=== PATIENT | male | born 1970 | race Caucasian/White ===

== ENCOUNTER 2021-03-22 12:55 | Observation (INO) | payer OTHER ==
[2021-03-22] MEDS ORDERED: SODIUM CHLORIDE 0.9% 1,000 ML IV ONE (13:15)
--- NOTE | 2021-03-22 13:17 | ED ---
General Adult HPI - General Chief complaint: Psychiatric Symptoms Stated complaint: EPS eval Time Seen by Provider: 03/22/21 13:00 Source: patient, RN notes reviewed, old records reviewed Mode of arrival: ambulatory Limitations: no limitations - History of Present Illness Initial comments: This is a 51-year-old male who presents emergency department stating that he was brought in by police because he told his therapist that he wants to jump off the bridge. Patient states he does not feel suicidal and in fact he was planning on going swimming in the [place] today. Patient denies suicidal ideations. Patient states he said that because his therapist is upsetting him and his been drinking so he says stupid things when he is drinking. Patient is not petition. Patient states he has no one to come pick him up. Patient denies any physical complaint s today. Patient denies headache patient denies chest pain patient's difficulty breathing or shortness of breath. Patient denies any recent cough or fever or chills per patient denies abdominal pain patient denies nausea vomiting diarrhea. - Related Data Allergies Allergy/AdvReac Type Severity Reaction Status Date / Time No Known Allergies Allergy Verified 03/22/21 13:03 Review of Systems ROS Statement: Those systems with pertinent positive or pertinent negative responses have been documented in the HPI. ROS Other: All systems not noted in ROS Statement are negative. Past Medical History Past Medical History: No Reported History History of Any Multi-Drug Resistant Organisms: None Reported Past Surgical History: No Surgical Hx Reported Past Psychological History: Bipolar, Depression Smoking Status: Current every day smoker Past Alcohol Use History: Abuse, Daily, Heavy Past Drug Use History: None Reported General Exam - General Exam Comments Initial Comments: GENERAL: Patient is well-developed and well-nourished. Patient is nontoxic and well- hydrated and is in no acute distress. Patient does appear intoxicated ENT: Neck is soft and supple. No significant lymphadenopathy is noted. Oropharynx is clear. Moist mucous membranes. Neck has full range of motion without eliciting any pain. EYES: The sclera were anicteric and conjunctiva were pink and moist. Extraocular movements were intact and pupils were equal round and reactive to light. Eyelids were unremarkable. PULMONARY: Unlabored respirations. Good breath sounds bilaterally. No audible rales rhonchi or wheezing was noted. CARDIOVASCULAR: There is a regular rate and rhythm without any murmurs gallops or rubs. ABDOMEN: Soft and nontender with normal bowel sounds. SKIN: Skin is clear with no lesions or rashes and otherwise unremarkable. NEUROLOGIC: Patient is alert and oriented x3. Cranial nerves II through XII are grossly in tact. Motor and sensory are also intact. Normal speech, volume and content. Symmetrical smile. MUSCULOSKELETAL: Normal extremities with adequate strength and full range of motion. LYMPHATICS: No significant lymphadenopathy is noted PSYCHIATRIC: Patient denies any suicidal homicidal ideations. Patient is to vomit and does not appear to be depressed just intoxicated Limitations: no limitations Course Vital Signs 03/22/21 13:00 Temperature 98.5 F Pulse Rate 124 H Respiratory 18 Rate Blood Pressure 128/87 O2 Sat by Pulse 95 Oximetry Medical Decision Making - Medical Decision Making I spoke with Dr. tristan he agreed to admit the patient admitted the patient wrote admitting orders. Dr. chavez wanted a psychiatric consultation. - Lab Data Result diagrams: 03/22/21 13:37 03/22/21 13:37 Lab Results 03/22/21 03/22/21 Range/Units 13:37 13:37 WBC 14.4 H (3.8-10.6) k/uL RBC 5.25 (4.30-5.90) m/uL Hgb 15.8 (13.0-17.5) gm/dL Hct 46.3 (39.0-53.0) % MCV 88.1 (80.0-100.0) fL MCH 30.1 (25.0-35.0) pg MCHC 34.1 (31.0-37.0) g/dL RDW 13.8 (11.5-15.5) % Plt Count 296 (150-450) k/uL MPV 7.5 Neutrophils % 87 % Lymphocytes % 8 % Monocytes % 3 % Eosinophils % 0 % Basophils % 0 % Neutrophils # 12.6 H (1.3-7.7) k/uL Lymphocytes # 1.2 (1.0-4.8) k/uL Monocytes # 0.5 (0-1.0) k/uL Eosinophils # 0.1 (0-0.7) k/uL Basophils # 0.1 (0-0.2) k/uL Sodium 139 (137-145) mmol/L Potassium 3.8 (3.5-5.1) mmol/L Chloride 104 (98-107) mmol/L Carbon Dioxide 18 L (22-30) mmol/L Anion Gap 17 mmol/L BUN 14 (9-20) mg/dL Creatinine 0.79 (0.66-1.25) mg/dL Est GFR (CKD-EPI)AfAm >90 (>60 ml/min/1.73 sqM) Est GFR (CKD-EPI)NonAf >90 (>60 ml/min/1.73 sqM) Glucose 278 H (74-99) mg/dL Calcium 8.7 (8.4-10.2) mg/dL Magnesium 1.9 (1.6-2.3) mg/dL Total Bilirubin 0.7 (0.2-1.3) mg/dL AST 61 H (17-59) U/L ALT 35 (4-49) U/L Alkaline Phosphatase 122 (38-126) U/L Total Protein 7.0 (6.3-8.2) g/dL Albumin 4.3 (3.5-5.0) g/dL Serum Alcohol 229 H* mg/dL Disposition Clinical Impression: Alcohol intoxication Disposition: ADMITTED IP TO THIS HOSP Referrals: None,Stated [Primary Care Provider] - 1-2 days Time of Disposition: 14:29
[2021-03-22 13:56] LABS: ALT 35 U/L (4-49); AST 61 U/L (17-59); African American GFR (CKD) >90 (>60 ml/min/1.73 sqM); Albumin 4.3 g/dL (3.5-5.0); Alkaline Phosphatase 122 U/L (38-126); Anion Gap 17 mmol/L; Blood Urea Nitrogen 14 mg/dL (9-20); Calcium 8.7 mg/dL (8.4-10.2); Carbon Dioxide 18 mmol/L (22-30); Chloride 104 mmol/L (98-107); Glucose 278 mg/dL (74-99); Magnesium 1.9 mg/dL (1.6-2.3); Non-African American GFR(CKD) >90 (>60 ml/min/1.73 sqM); Potassium 3.8 mmol/L (3.5-5.1); Sodium 139 mmol/L (137-145); Total Bilirubin 0.7 mg/dL (0.2-1.3)
[2021-03-22 14:02] LABS: Basophils # (A) 0.1 k/uL (0-0.2); Basophils % (A) 0 %; Eosinophils # (A) 0.1 k/uL (0-0.7); Eosinophils % (A) 0 %; HCT 46.3 % (39.0-53.0); HGB 15.8 gm/dL (13.0-17.5); Lymphocytes # (A) 1.2 k/uL (1.0-4.8); Lymphocytes % (A) 8 %; MCH 30.1 pg (25.0-35.0); MCHC 34.1 g/dL (31.0-37.0); MCV 88.1 fL (80.0-100.0); Mean Platelet Volume 7.5; Monocytes # (A) 0.5 k/uL (0-1.0); Monocytes % (A) 3 %; Neutrophils # (A) 12.6 k/uL (1.3-7.7); Neutrophils % (A) 87 %; Platelet Count 296 k/uL (150-450); RBC 5.25 m/uL (4.30-5.90); RDW 13.8 % (11.5-15.5); WBC 14.4 k/uL (3.8-10.6)
[2021-03-22 14:07] LABS: Alcohol 229 mg/dL
[2021-03-22] MEDS ORDERED: LORazepam 2 MG/ML INJ IV PRN ×2 (14:31)
[2021-03-22] MEDS ORDERED: THIAMINE 100 MG/ML 2 ML VIAL IM STA (14:31)
[2021-03-22] MEDS: SODIUM CHLORIDE 0.9% 1,000 ML IV ONE ×2 (15:00→23:54)
[2021-03-22] MEDS ORDERED: MORPHINE SULFATE 4 MG/ML SYRINGE IVP PRN (17:14)
[2021-03-22] MEDS ORDERED: MORPHINE SULFATE 4 MG/ML SYRINGE IVP STA (17:14)
--- NOTE | 2021-03-22 18:28 | XR ---
EXAMINATION TYPE: XR chest 1V DATE OF EXAM: 03/22/2021 COMPARISON: NONE HISTORY: Short of breath TECHNIQUE: Single view FINDINGS: Heart and mediastinum are normal. Lungs are clear of infiltrate. There is old left clavicle fracture with deformity. There is no pleural effusion. IMPRESSION: No active cardiopulmonary disease. Normal heart.
[2021-03-22] MEDS: THIAMINE 100 MG TAB PO SCH (18:39)
[2021-03-22] MEDS: SODIUM CHLORIDE 0.9% 1,000 ML IV SCH (18:41)
--- NOTE | 2021-03-22 21:39 | P.HPIM ---
History of Present Illness This is a pleasant 51 years old male with past medical history of bipolar and depression, cigarette smoker and alcohol abuse. Patient presents because he was feeling depressed. He has been fighting with his the last 3-4 days because of his drinking habit. Patient has been drinking before but he is also been sober for a while now however. Last few days ago when he was drinking a lot. Because of this he got a qurrel with his as a result of that his to come off of their house, they live together in [place] but he drove him to the train station [place] from there he took the train to [place] his home town where he was raised and admitted him to the emergency room Patient was talking to his psychologist where he got upset and made a suicidal comment stating that he will throw themselves of the bridge, currently patient says that he does not want to kill himself but also he does not want to live. He is short of breath, probably from his smoking habits, he says that he has a smoking cuff. No chest pain. Pain or nausea vomiting. Urinary complaints. Today, or weakness or numbness. Fever however he complains from pain at the left clavicle area from old fracture with some deformity in the area. No recent trauma or fall Vital showing he is hemodynamically stable. Labs reviewed showing mild leuko cytosis at 14 K. In the emergency room he was started on CIWA protocol, thiamine normal saline at 50 mL/h Past Medical History Past Medical History: No Reported History History of Any Multi-Drug Resistant Organisms: None Reported Past Surgical History: No Surgical Hx Reported Past Psychological History: Bipolar, Depression Smoking Status: Current every day smoker Past Alcohol Use History: Abuse, Daily, Heavy Past Drug Use History: None Reported Medications and Allergies Home Medications Medication Instructions Recorded Confirmed Type OLANZapine 15 mg PO HS 03/22/21 03/22/21 History hydrOXYzine pamoate [Vistaril] 50 mg PO BID 03/22/21 03/22/21 History traZODone HCL [Desyrel] 100 mg PO HS 03/22/21 03/22/21 History Allergies Allergy/AdvReac Type Severity Reaction Status Date / Time No Known Allergies Allergy Verified 03/22/21 15:31 Physical Exam Vitals: Vital Signs Temp Pulse Resp BP Pulse Ox 03/22/21 15:00 97.9 F 118 H 18 138/69 95 03/22/21 13:00 98.5 F 124 H 18 128/87 95 Intake and Output 03/22/21 03/22/21 03/22/21 06:59 14:59 22:59 Other: Weight 83.915 kg Results CBC & Chem 7: 03/22/21 13:37 03/22/21 13:37 Labs: Abnormal Lab Results - Last 24 Hours (Table) 03/22/21 03/22/21 Range/Units 13:37 13:37 WBC 14.4 H (3.8-10.6) k/uL Neutrophils # 12.6 H (1.3-7.7) k/uL Carbon Dioxide 18 L (22-30) mmol/L Glucose 278 H (74-99) mg/dL AST 61 H (17-59) U/L Serum Alcohol 229 H* mg/dL Assessment and Plan Assessment: Bipolar, depression, rule out suicidal ideation alcohol intoxication at-risk of alcohol withdrawal Alcohol abuse Nicotine dependence Left clavicular area pain from old trauma Plan: This is a pleasant 51 years old male who presents with depression, I'll call abuse and suicidal commands. With the patient on CIWA protocol. And thiamine. Continue gentle hydration Suicidal precautions, keep sitter at bedside Patient currently agrees to stay in the hospital. However he cannot leave AMA told he got cleared by psychiatrist and to the patient's was to leave AMA he needs to be petitioned, discussed with the bedside nurse Labs and medication were reviewed.. Continue same treatment. Continue with symptomatic treatment. Resume home medication. Monitor lytes and vitals. DVT and GI prophylaxis. Further recommendationsas per clinical course of the patient DVT prophylaxis: Subcutaneous heparin Lovenox GI Prophylaxis: Pepcid Prognosis is guarded
[2021-03-22] MEDS: FAMOTIDINE 20 MG/2 ML VIAL IV SCH (23:53)
[2021-03-23] MEDS: LORazepam 2 MG/ML INJ IV PRN ×3 (02:15→17:59)
[2021-03-23] MEDS: THIAMINE 100 MG TAB PO SCH ×2 (07:26→16:52)
[2021-03-23] MEDS: NICOTINE 21MG/24HR PATCH TRANSDERM SCH (08:42)
[2021-03-23] MEDS: ENOXAPARIN 40 MG/0.4 ML SYRINGE SQ SCH (08:42)
[2021-03-23] MEDS: FAMOTIDINE 20 MG/2 ML VIAL IV SCH ×2 (08:42→20:40)
[2021-03-23] MEDS: SODIUM CHLORIDE 0.9% 1,000 ML IV SCH (08:42)
[2021-03-23 10:15] LABS: Basophils # (A) 0.07 X 10*3/uL (0.00-0.10); Basophils % (A) 0.6 %; Eosinophils # (A) 0.14 X 10*3/uL (0.04-0.35); Eosinophils % (A) 1.1 %; HCT 42.6 % (39.6-50.0); HGB 14.1 g/dL (13.0-17.0); Lymphocytes % (A) 21.4 %; MCHC 33.1 g/dL (32.0-37.0); MCV 87.7 fL (80.0-97.0); Mean Platelet Volume 10.6 fL (9.5-12.2); Monocytes # (A) 1.04 X 10*3/uL (0.20-1.00); Monocytes % (A) 8.3 %; Neutrophils # (A) 8.59 X 10*3/uL (1.80-7.70); Neutrophils % (A) 68.1 %; Platelet Count 256 X 10*3/uL (140-440); RBC 4.86 X 10*6/uL (4.40-5.60); RDW 14.1 % (11.5-14.5)
--- NOTE | 2021-03-23 13:22 | P.CN ---
Psychiatric Consult - . Consult date: 03/23/21 Consult:: 03/23/21 13:15 IDENTIFYING DATA: This patient is a 51-year-old male with a history of chronic alcohol abuse who is homeless and is currently with his . He has 2 daughters and is unemployed. REASON FOR REFERRAL: Psychiatry was consulted for depression and making suicidal comments HISTORY OF PRESENT ILLNESS: The patient presented to the hospital yesterday by police and was brought in after therapist he told called them because patient stated that he wanted to jump off a bridge. Patient claimed after that he was not suicidal and wanted to go swimming. Patient did endorse severe alcohol drinking and "saying stupid things" when he drinks. Patient's blood alcohol level was 229 on admission. Patient was seen at the bedside today and agreeable to speak to business writer. He had a constricted affect and appeared to be depressed. He also claimed that he is feeling anxious from the withdrawal symptoms and appeared to be sweating. He claims that he also gets tremors when he withdraws from alcohol however denied any history of withdrawal seizures or DTs. He claims that he made the comment about suicide and claims that "I wasn't thinking" however did claim that he is struggling with drinking and his depre ssion. He claims that his depression is about a 1 or 2 out of 10. He claims that his and him a few days ago. He claims that he is drinking approximately a fifth and a half of vodka daily. He claims that he has been noncompliant with his psychiatric medications. At this time patient denies any current suicidal or homical ideations, intent or plan. Patient denies any auditory, visual hallucinations and denies any paranoia or delusions. Patients admits to using alcohol as described above and cigarettes. PAST PSYCHIATRIC HISTORY: Patient has a a history of bipolar depression and anxiety and alcohol abuse. He claims that he was previously on Vistaril, Zyprexa and trazodone. Patient denies any previous psychiatric hospitalizations. He states that he currently follows up and [place] at a psychiatric clinic called [facility]. Patient denies any history of suicide attempts in the past. PAST MEDICAL HISTORY: denies. ALLERGIES: as per EMR. CHEMICAL DEPENDENCY HISTORY: as per HPI. FAMILY PSYCHIATRIC/SUBSTANCE USE HISTORY: He states that his mother had some form of mental illness. Claims that his father was an alcoholic SOCIAL HISTORY: Patient was born and raised in [facility]. He claims that he is currently homeless and is going through a separation. He states he has 2 daughters. He claims that he is unemployed. He states that he has been to [facility] in the past however was vague about why.. MENTAL STATUS EXAM: General Appearance: Patient appears to be sweating, stated age is alert, attempts to be cooperative. Patient appears to have poor hygiene and grooming wearing hospital gown with fair eye contact. Behavior: Patient is calmly lying in bed without any agitated behavior. Tremors and is sweating. Speech: Patient's speech is fluent and nonpressured. Mood/Affect: Patient reports their mood is "depressed and anxious", affect is congruent Suicidality/Homicidality: Patient denies having any suicidal or homicidal ideation intent or plan. Perceptions: Patient denies any visual hallucinations and denies any auditory hallucinations Though content/process: There is no evidence of any delusional thought content and thought process is linear and goal-directed. [place] Memory and concentration: AOX3, grossly intact for the purposes of this session. Can spell "WORLD" backwards Judgment and insight: poor IMPRESSIONS: Depressive disorder unspecified, rule out bipolar disorder with depressed mood versus major depressive disorder versus substance-induced mood disorder PLAN: -This time will continue to follow-up/follow along with patient's case as he goes through withdrawals to see if patient will meet criteria for inpatient psychiatric care. -Would recommend the following medication changes/additions: Zyprexa 5 mg daily at bedtime for mood stabilization/depression/insomnia. Started Valium 5 mg twice a day for alcohol withdrawal. WA protocol with PRN Ativan for alcohol withdrawal. Continue to monitor vital signs.] -Continue 1:1 sitter for safety -Cannot leave AMA at this time. Patient will need a petition and certification if attempting to leave AMA. -Police Manager spoke with patient about substance abuse and the harmful effects on medical and mental health, patient verbally understood and agreed. -Communicated plan to patient's nurse -Will continue to follow along -Please contact with any questions.
[2021-03-23] MEDS: diazePAM 5 MG TAB PO SCH ×2 (13:28→20:40)
[2021-03-23] MEDS ORDERED: MORPHINE SULFATE 4 MG/ML SYRINGE IVP PRN (20:15)
--- NOTE | 2021-03-23 20:18 | P.PN ---
Subjective This is a pleasant 51 years old male with past medical history of bipolar and depression, cigarette smoker and alcohol abuse. Patient presents because he was feeling depressed. He has been fighting with his the last 3-4 days because of his drinking habit. Patient has been drinking before but he is also been sober for a while now however. Last few days ago when he was drinking a lot. Because of this he got a qurrel with his as a result of that his to come off of their house, they live together in [place] but he drove him to the train station [place] from there he took the train to [place] his home town where he was raised and admitted him to the emergency room Patient was talking to his psychologist where he got upset and made a suicidal comment stating that he will throw themselves of the bridge, currently patient s ays that he does not want to kill himself but also he does not want to live. He is short of breath, probably from his smoking habits, he says that he has a smoking cuff. No chest pain. Pain or nausea vomiting. Urinary complaints. Today, or weakness or numbness. Fever however he complains from pain at the left clavicle area from old fracture with some deformity in the area. No recent trauma or fall Vital showing he is hemodynamically stable. Labs reviewed showing mild leukocytosis at 14 K. In the emergency room he was started on CIWA protocol, thiamine normal saline at 50 mL/h 03/23/2021 Patient is on CIWA protocol as his CIWA score is 11-12 this morning, he got Ativan. More sleepy. He did not take or need any morphine. He is calm. Sitter at bedside Vitals are stable. Oxygen is 91-93%. WBC is trending down to 12 K Continue with Ativan as needed, thiamine, evaluated by psychiatrist. Patient is going to stay in the hospital for now. Discussed with staff patient cannot leave AMA otherwise he needs to be petitioned, for possible risk to herself and suicidal thoughts. Objective - Vital Signs Vital signs: Vital Signs Temp 98.2 F 03/23/21 14:46 Pulse 80 03/23/21 14:46 Resp 16 03/23/21 14:46 BP 122/69 03/23/21 14:46 Pulse Ox 91 L 03/23/21 14:46 Intake & Output 03/22/21 03/23/21 03/23/21 18:59 06:59 18:59 Intake Total 200 Output Total 300 Balance -300 200 Weight 83.915 kg Intake: Oral 200 Output: Emesis 300 Other: # Voids 1 - Labs CBC & Chem 7: 03/23/21 05:32 03/22/21 13:37 Labs: Abnormal Lab Results - Last 24 Hours (Table) 03/23/21 Range/Units 05:32 WBC 12.60 H (4.50-10.00) X 10*3/uL Immature Gran # 0.06 H (0.00-0.04) X 10*3/uL Neutrophils # 8.59 H (1.80-7.70) X 10*3/uL Monocytes # 1.04 H (0.20-1.00) X 10*3/uL Assessment and Plan Assessment: Bipolar, depression, with suicidal ideation alcohol intoxication now going into alcohol withdrawal Alcohol abuse Nicotine dependence Left clavicular area pain from old trauma Plan: This is a pleasant 51 years old male who presents with depression, I'll call abuse and suicidal commands. With the patient on CIWA protocol. And thiamine. Continue gentle hydration Suicidal precautions, keep sitter at bedside Patient currently agrees to stay in the hospital. However he cannot leave AMA told he got cleared by psychiatrist and to the patient's was to leave AMA he needs to be petitioned, discussed with the bedside nurse Labs and medication were reviewed.. Continue same treatment. Continue with s ymptomatic treatment. Resume home medication. Monitor lytes and vitals. DVT and GI prophylaxis. Further recommendations as per clinical course of the patient DVT prophylaxis: Subcutaneous heparin Lovenox GI Prophylaxis: Pepcid Prognosis is guarded
[2021-03-23] MEDS ORDERED: OLANZapine 5 MG TAB PO SCH (21:00)
[2021-03-24 07:39] VITALS: BP 165/78; TEMP 98.4
[2021-03-24 07:41] VITALS: RESP 16
[2021-03-24] MEDS: THIAMINE 100 MG TAB PO SCH (07:59)
[2021-03-24] MEDS: FAMOTIDINE 20 MG/2 ML VIAL IV SCH (08:20)
[2021-03-24 08:52] VITALS: PULSE 94
[2021-03-24] MEDS ORDERED: ALPRAZolam 0.5 MG TAB PO STA (08:59)
[2021-03-24] MEDS ORDERED: GABAPENTIN 300 MG CAP PO SCH (09:00)
[2021-03-24 09:25] LABS: Basophils # (A) 0.07 X 10*3/uL (0.00-0.10); Basophils % (A) 0.6 %; Eosinophils # (A) 0.23 X 10*3/uL (0.04-0.35); HCT 42.5 % (39.6-50.0); Lymphocytes # (A) 2.44 X 10*3/uL (0.90-5.00); Lymphocytes % (A) 21.3 %; MCH 28.9 pg (27.0-32.0); MCHC 32.9 g/dL (32.0-37.0); MCV 87.6 fL (80.0-97.0); Mean Platelet Volume 10.5 fL (9.5-12.2); Monocytes # (A) 0.89 X 10*3/uL (0.20-1.00); Monocytes % (A) 7.8 %; Neutrophils # (A) 7.78 X 10*3/uL (1.80-7.70); Neutrophils % (A) 67.9 %; Platelet Count 245 X 10*3/uL (140-440); RBC 4.85 X 10*6/uL (4.40-5.60); RDW 13.8 % (11.5-14.5); WBC 11.46 X 10*3/uL (4.50-10.00)
[2021-03-24] MEDS: diazePAM 5 MG TAB PO SCH (10:27)
[2021-03-24] MEDS: NICOTINE 21MG/24HR PATCH TRANSDERM SCH (10:29)
[2021-03-24] MEDS: ENOXAPARIN 40 MG/0.4 ML SYRINGE SQ SCH (10:29)
[2021-03-24 11:00] LABS: African American GFR (CKD) 124.9 (60.0-200.0); Anion Gap 11.2 mmol/L (4.00-12.00); BUN/Creat Ratio 11.43 Ratio (12.00-20.00); Calcium 8.4 mg/dL (8.7-10.3); Carbon Dioxide 21.8 mmol/L (21.6-31.8); Magnesium 1.9 mg/dL (1.5-2.4); Non-African American GFR(CKD) 107.7 (60.0-200.0); Potassium 3.8 mmol/L (3.5-5.5)
--- NOTE | 2021-03-24 13:38 | P.PN ---
Progress Note - Text Progress Note Date: 03/24/21 Interval History: Patient was seen today for psychiatric follow-up regarding patient's depression. Patient's nurse claims that patient has been doing well today and his CIWA scores have improved significantly. Nurse also claims the patient is not suicidal any longer and not endorsing any depression today and wants to leave. Patient was seen at the bedside today and appeared to be appropriate and cooperative during the interview and states that he is doing much better today. He claims that he is not feeling depressed. He states that he was able to sleep fairly last night. He claims that he wants to get back with his and stop drinking alcohol. He declines any medications for cravings at this time. He claims that he will want to go do a drug treatment program in the future when the gets back to [place]. At this time patient denies any suicidal or homical ideations, intent or plan. Patient denies any auditory, visual hallucinations and denies any paranoia or delusions. Patient denies any side effects from the medications and has been compliant with meds. Mental Status Exam: General Appearance: Patient appears to be sweating, stated age is alert, attempts to be cooperative. Patient appears to have improving hygiene and grooming wearing hospital gown with fair eye contact. Behavior: Patient is calmly lying in bed without any agitated behavior. Speech: Patient's speech is fluent and nonpressured. Mood/Affect: Patient reports their mood is "good", affect is congruent Suicidality/Homicidality: Patient denies having any suicidal or homicidal ideation intent or plan. Perceptions: Patient denies any visual hallucinations and denies any auditory hallucinations Though content/process: There is no evidence of any delusional thought content and thought process is linear and goal-directed. [place] Memory and concentration: AOX3, grossly intact for the purposes of this session. Judgment and insight: Improving mildly Assessment Depressive disorder unspecified, rule out bipolar disorder with depressed mood versus major depressive disorder versus substance-induced mood disorder alcohol use disorder, currently in withdrawal Plan: -Would recommend the following medication changes/additions: Zyprexa 5 mg daily at bedtime for mood stabilization/depression/insomnia. Valium 5 mg twice a day for alcohol withdrawal however this should not be given to patient when he is discharged. -discontinue 1:1 sitter as patient is no longer suicidal or homicidal -SW to give patient [facility] information, follow up referral and substance abuse resources. -Communicated plan to patient's nurse -At this time psychiatry will sign off. -Please contact with any questions.
== END 2021-03-24 14:12 | disposition home or self-care (01) ==
LOC: EC 12:55 → 6NMEDSUR 14:29 → 4SSUR 16:17
PROVIDERS: ADMIT Internal Medicine; ATTEND Internal Medicine
DX: F10.229 Alcohol dependence with intoxication, unspecified (principal); F10.239 Alcohol dependence with withdrawal, unspecified; Y90.7 Blood alcohol level of 200-239 mg/100 ml; F17.210 Nicotine dependence, cigarettes, uncomplicated; R45.851 Suicidal ideations; F31.9 Bipolar disorder, unspecified; D72.829 Elevated white blood cell count, unspecified; Z79.899 Other long term (current) drug therapy; Z87.81 Personal history of (healed) traumatic fracture
CPT/HCPCS: 96376 ×2; 96372 ×3; 96375 ×2; 82075; 96361; 96374; 99285; 36415; 80053; 80048; 83735 ×2; 85025 ×3; 71045; G0378 ×3; G0480; S4990 ×2; J2060 ×2; J2270; J3411; J1650 ×2; 80320

== ENCOUNTER 2021-03-26 12:53 | Inpatient (IN) | payer OTHER ==
[2021-03-26] MEDS ORDERED: SODIUM CHLORIDE 0.9% 1,000 ML IV STA ×2 (13:02→17:00)
[2021-03-26] MEDS ORDERED: LORazepam 2 MG/ML INJ IV STA (13:15)
[2021-03-26] MEDS ORDERED: cloNIDine HCL 0.1 MG TAB PO STA (13:15)
--- NOTE | 2021-03-26 13:20 | ED ---
Alcohol HPI - General Chief Complaint: Alcohol Stated Complaint: Detox Time Seen by Provider: 03/26/21 12:59 Source: patient, RN notes reviewed, old records reviewed Mode of arrival: ambulatory Limitations: no limitations - History of Present Illness MD Complaint: alcohol intoxication, alcohol withdrawal, alcohol dependence, desires rehab (This is a 51-year-old male with a history about causing who was just discharged 2 days ago after being admitted for alcohol intoxication who is back today with desire for rehab he states he been drinking 1-1/2 fists of liquor per day since discharge has not eaten for about 7 days he states he is amb[place]) - Related Data Home Medications Medication Instructions Recorded Confirmed hydrOXYzine pamoate [Vistaril] 50 mg PO BID 03/26/21 03/26/21 traZODone HCL 100 mg PO HS 03/26/21 03/26/21 Previous Rx's Medication Instructions Recorded OLANZapine [ZyPREXA] 5 mg PO HS #30 tab 03/24/21 Thiamine [Vitamin B-1] 100 mg PO BID-W/MEALS #30 tab 03/24/21 Allergies Allergy/AdvReac Type Severity Reaction Status Date / Time No Known Allergies Allergy Verified 03/26/21 14:08 Review of Systems ROS Statement: Those systems with pertinent positive or pertinent negative responses have been documented in the HPI. ROS Other: All systems not noted in ROS Statement are negative. Past Medical History Past Medical History: No Reported History History of Any Multi-Drug Resistant Organisms: None Reported Past Surgical History: No Surgical Hx Reported Past Psychological History: Bipolar, Depression Smoking Status: Current every day smoker Past Alcohol Use History: Abuse, Daily, Heavy Past Drug Use History: None Reported General Exam - General Exam Comments Initial Comments: This is a well-developed well-nourished awake alert oriented times 3 male Limitations: no limitations General appearance: alert, anxious Head exam: Present: atraumatic, normocephalic, normal inspection Eye exam: Present: normal appearance, PERRL, EOMI. Absent: scleral icterus, conjunctival injection, periorbital swelling ENT exam: Present: normal exam, mucous membranes moist Neck exam: Present: normal inspection, full ROM, other. Absent: tenderness, meningismus, lymphadenopathy Respiratory exam: Present: normal lung sounds bilaterally. Absent: respiratory distress, wheezes, rales, rhonchi, stridor Cardiovascular Exam: Present: normal rhythm, tachycardia, normal heart sounds. Absent: systolic murmur, diastolic murmur, rubs, gallop, clicks GI/Abdominal exam: Present: soft, normal bowel sounds. Absent: distended, tenderness, guarding, rebound, rigid Extremities exam: Present: normal inspection, full ROM, normal capillary refill. Absent: tenderness, pedal edema, joint swelling, calf tenderness Back exam: Present: normal inspection Neurological exam: Present: alert, oriented X3, CN II-XII intact Psychiatric exam: Present: normal affect, anxious Skin exam: Present: warm, intact, normal color, diaphoretic. Absent: rash Course Vital Signs 03/26/21 03/26/21 12:55 15:57 Temperature 97.6 F Pulse Rate 111 H 90 Respiratory 18 18 Rate Blood Pressure 142/90 106/63 O2 Sat by Pulse 98 93 L Oximetry Medical Decision Making - Medical Decision Making The patient will be admitted for inpatient evaluation and treatment of acute alcohol intoxication and acute rhabdomyolysis and impending DTs. Reevaluation on several occasions demonstrated the patient was resting currently after medications were administered. - Lab Data Result diagrams: 03/26/21 13:38 03/26/21 13:38 Lab Results 03/26/21 03/26/21 Range/Units 13:38 13:38 WBC 19.4 H (3.8-10.6) k/uL RBC 5.32 (4.30-5.90) m/uL Hgb 16.1 (13.0-17.5) gm/dL Hct 47.3 (39.0-53.0) % MCV 88.8 (80.0-100.0) fL MCH 30.3 (25.0-35.0) pg MCHC 34.1 (31.0-37.0) g/dL RDW 13.4 (11.5-15.5) % Plt Count 305 (150-450) k/uL MPV 8.0 Neutrophils % 75 % Lymphocytes % 17 % Monocytes % 4 % Eosinophils % 1 % Basophils % 1 % Neutrophils # 14.5 H (1.3-7.7) k/uL Lymphocytes # 3.3 (1.0-4.8) k/uL Monocytes # 0.9 (0-1.0) k/uL Eosinophils # 0.2 (0-0.7) k/uL Basophils # 0.1 (0-0.2) k/uL Sodium 140 (137-145) mmol/L Potassium 4.1 (3.5-5.1) mmol/L Chloride 106 (98-107) mmol/L Carbon Dioxide 16 L (22-30) mmol/L Anion Gap 18 mmol/L BUN 15 (9-20) mg/dL Creatinine 0.74 (0.66-1.25) mg/dL Est GFR (CKD-EPI)AfAm >90 (>60 ml/min/1.73 sqM) Est GFR (CKD-EPI)NonAf >90 (>60 ml/min/1.73 sqM) Glucose 74 (74-99) mg/dL Calcium 9.2 (8.4-10.2) mg/dL Magnesium 2.0 (1.6-2.3) mg/dL Total Bilirubin 0.8 (0.2-1.3) mg/dL AST 174 H (17-59) U/L ALT 105 H (4-49) U/L Alkaline Phosphatase 152 H (38-126) U/L Creatine Kinase 2702 H* (55-170) U/L Total Protein 7.4 (6.3-8.2) g/dL Albumin 4.5 (3.5-5.0) g/dL Lipase 299 (23-300) U/L Serum Alcohol 295 H* mg/dL Critical Care Time Critical Care Time: Yes Total Critical Care Time: 31 Critical Care Time: This includes initial presentation with history physical labs x-rays multiple reevaluation patient responsive therapy review of old charting discussed with family discuss with the admitting service documentation the above and admission orders Disposition Clinical Impression: Alcohol withdrawal delirium, Alcohol withdrawal syndrome, Alcohol intoxication, Rhabdomyolysis Disposition: ADMITTED IP TO THIS HOSP Condition: Fair Referrals: None,Stated [Primary Care Provider] - 1-2 days
[2021-03-26 13:46] LABS: Basophils # (A) 0.1 k/uL (0-0.2); Basophils % (A) 1 %; Eosinophils # (A) 0.2 k/uL (0-0.7); Eosinophils % (A) 1 %; HCT 47.3 % (39.0-53.0); HGB 16.1 gm/dL (13.0-17.5); Lymphocytes # (A) 3.3 k/uL (1.0-4.8); Lymphocytes % (A) 17 %; MCH 30.3 pg (25.0-35.0); MCHC 34.1 g/dL (31.0-37.0); MCV 88.8 fL (80.0-100.0); Monocytes # (A) 0.9 k/uL (0-1.0); Monocytes % (A) 4 %; Neutrophils # (A) 14.5 k/uL (1.3-7.7); Neutrophils % (A) 75 %; Platelet Count 305 k/uL (150-450); RBC 5.32 m/uL (4.30-5.90); RDW 13.4 % (11.5-15.5); WBC 19.4 k/uL (3.8-10.6)
[2021-03-26 13:57] LABS: ALT 105 U/L (4-49); AST 174 U/L (17-59); African American GFR (CKD) >90 (>60 ml/min/1.73 sqM); Albumin 4.5 g/dL (3.5-5.0); Alkaline Phosphatase 152 U/L (38-126); Anion Gap 18 mmol/L; Blood Urea Nitrogen 15 mg/dL (9-20); Calcium 9.2 mg/dL (8.4-10.2); Carbon Dioxide 16 mmol/L (22-30); Chloride 106 mmol/L (98-107); Glucose 74 mg/dL (74-99); Lipase 299 U/L (23-300); Non-African American GFR(CKD) >90 (>60 ml/min/1.73 sqM); Potassium 4.1 mmol/L (3.5-5.1); Sodium 140 mmol/L (137-145); Total Bilirubin 0.8 mg/dL (0.2-1.3); Total Protein 7.4 g/dL (6.3-8.2)
[2021-03-26] MEDS ORDERED: SODIUM CHLORIDE 0.9% 1,000 ML with MVI, ADULT NO.4 WITH VIT K 10 ML, THIAMINE 100 MG, F... IV ONE ×4 (14:00)
[2021-03-26 14:06] LABS: Alcohol 295 mg/dL; Creatine Kinase 2702 U/L (55-170)
[2021-03-26] MEDS ORDERED: NALOXONE 0.4 MG/ML 1 ML VIAL IV PRN (17:06)
[2021-03-26] MEDS ORDERED: THIAMINE 100 MG/ML 2 ML VIAL IM STA (17:08)
[2021-03-26] MEDS ORDERED: LORazepam 2 MG/ML INJ IV PRN ×2 (17:08)
[2021-03-26] MEDS ORDERED: THIAMINE 100 MG TAB PO SCH (17:30)
[2021-03-26] MEDS: LORazepam 2 MG/ML INJ IV PRN (17:54)
[2021-03-26] MEDS: traZODone HCL 100 MG TAB PO SCH (22:12)
[2021-03-26] MEDS: hydrOXYzine pamoate 25 MG CAP PO SCH (22:12)
[2021-03-26] MEDS: OLANZapine 5 MG TAB PO SCH (22:12)
[2021-03-27] MEDS: THIAMINE 100 MG TAB PO SCH ×2 (07:11→15:46)
[2021-03-27] MEDS: hydrOXYzine pamoate 25 MG CAP PO SCH ×2 (07:11→20:02)
[2021-03-27] MEDS: LORazepam 2 MG/ML INJ IV PRN ×3 (07:12→20:01)
[2021-03-27 09:00] LABS: African American GFR (CKD) >90 (>60 ml/min/1.73 sqM); Anion Gap 14 mmol/L; Blood Urea Nitrogen 16 mg/dL (9-20); Calcium 8.5 mg/dL (8.4-10.2); Carbon Dioxide 13 mmol/L (22-30); Chloride 107 mmol/L (98-107); Creatine Kinase 944 U/L (55-170); Glucose 66 mg/dL (74-99); Non-African American GFR(CKD) >90 (>60 ml/min/1.73 sqM); Potassium 4.4 mmol/L (3.5-5.1); Sodium 134 mmol/L (137-145)
[2021-03-27 09:51] LABS: Basophils # (A) 0.1 k/uL (0-0.2); Basophils % (A) 0 %; Eosinophils # (A) 0.2 k/uL (0-0.7); Eosinophils % (A) 1 %; HCT 43.8 % (39.0-53.0); HGB 14.6 gm/dL (13.0-17.5); Lymphocytes # (A) 2.3 k/uL (1.0-4.8); Lymphocytes % (A) 9 %; MCH 30.3 pg (25.0-35.0); MCHC 33.3 g/dL (31.0-37.0); Mean Platelet Volume 7.7; Monocytes # (A) 1.1 k/uL (0-1.0); Monocytes % (A) 4 %; Neutrophils # (A) 21.6 k/uL (1.3-7.7); Neutrophils % (A) 85 %; Platelet Count 270 k/uL (150-450); RBC 4.81 m/uL (4.30-5.90); WBC 25.5 k/uL (3.8-10.6)
[2021-03-27] MEDS ORDERED: ONDANSETRON 4 MG/2 ML VIAL IVP PRN (10:58)
[2021-03-27] MEDS: SODIUM CHLORIDE 0.9% 1,000 ML IV SCH ×2 (11:18→20:05)
[2021-03-27] MEDS: NICOTINE 21MG/24HR PATCH TRANSDERM SCH (11:19)
--- NOTE | 2021-03-27 11:37 | XR ---
EXAMINATION TYPE: XR chest 1V portable DATE OF EXAM: 03/27/2021 COMPARISON: 03/22/2021 INDICATION: Elevated white count TECHNIQUE: Single frontal view of the chest is obtained. FINDINGS: The heart size is normal. The pulmonary vasculature is normal. There is subtle increased lung markings in the periphery of the right lower lobe. Correlate for devel oping pneumonia IMPRESSION: 1. Subtle right lower lobe infiltrate. Correlate for pneumonia. Consider atypical pneumonia.
--- NOTE | 2021-03-27 11:56 | P.HPIM ---
History of Present Illness Patient is a pleasant 51-year-old male was recently discharged from the hospital after he was treated for alcohol withdrawals found to be wandering in intoxicated was brought in for alcohol intoxication. Patient is very pleasant and willing to quit alcohol and patient is willing to go to subacute rehabitation. Since he was recently treated about couple days ago for alcohol withdrawal are do not expect any more alcohol withdrawal but the patient has increased white blood cell count of 25,000. Patient doesn't have any cough d enied any dysuria patient was complaining of some abdominal discomfort we'll obtain a chest x-ray urinalysis urine cultures and repeat compress metabolic profile because of his elevated liver enzymes which is again secondary to alcoholic hepatitis and CBC because of leukocytosis which I cannot clearly explain can be reactive. Patient drinks about one fifth of liquor every day. Social work will be consulted REVIEW OF SYSTEMS: CONSTITUTIONAL: No fever, no malaise, no fatigue. HEENT: No recent visual problems or hearing problems. Denied any sore throat. CARDIOVASCULAR: No chest pain, orthopnea, PND, no palpitations, no syncope. PULMONARY: No shortness of breath, no cough, no hemoptysis. GASTROINTESTINAL: No diarrhea. NEUROLOGICAL: No headaches, no weakness, no numbness. HEMATOLOGICAL: Denies any bleeding or petechiae. GENITOURINARY: Denies any burning micturition, frequency, or urgency. MUSCULOSKELETAL/RHEUMATOLOGICAL: Denies any joint pain, swelling, or any muscle pain. ENDOCRINE: Denies any polyuria or polydipsia. The rest of the 14-point review of systems is negative. PHYSICAL EXAMINATION: GENERAL: The patient is alert and oriented x3, not in any acute distress. Well developed, well nourished. HEENT: Pupils are round and equally reacting to light. EOMI. No scleral icterus. No conjunctival pallor. Normocephalic, atraumatic. No pharyngeal erythema. No thyromegaly. CARDIOVASCULAR: S1 and S2 present. No murmurs, rubs, or gallops. PULMONARY: Chest is clear to auscultation, no wheezing or crackles. ABDOMEN: Soft, nontender, nondistended, normoactive bowel sounds. No palpable organomegaly. MUSCULOSKELETAL: No joint swelling or deformity. EXTREMITIES: No cyanosis, clubbing, or pedal edema. NEUROLOGICAL: Gross neurological examination did not reveal any focal deficits. SKIN: No rashes. Assessment and plan -Alcohol intoxication patient is much more awake now. I do not believe patient will have withdrawals at this time -Leukocytosis etiology is not clear below do the septic workup can be reactive if white blood cell count comes down tomorrow patient can be discharged patient will be started on any antibiotics at this time -Anion gap metabolic acidosis probably secondary to lactic acidosis from dehydration as well as alcohol and he with IV fluids at 100 mL per hour -Elevated CK, rhabdomyolysis: Patient will be continued on IV fluids -Acute alcoholic hepatitis which is expected to improve with cessation of alcohol, continue with thiamine multivitamin -Hypertension patient is presently hypotensive and discontinue clonidine continue with nifedipine. Depression DVT prophylaxis: Lovenox Past Medical History Past Medical History: No Reported History History of Any Multi-Drug Resistant Organisms: None Reported Past Surgical History: No Surgical Hx Reported Past Anesthesia/Blood Transfusion Reactions: No Reported Reaction Past Psychological History: Bipolar, Depression Smoking Status: Current every day smoker Past Alcohol Use History: Abuse, Daily, Heavy Additional Past Alcohol Use History / Comment(s): Vodka Fifth/Day, Beer occasionally Past Drug Use History: None Reported Medications and Allergies Home Medications Medication Instructions Recorded Confirmed Type OLANZapine [ZyPREXA] 5 mg PO HS #30 tab 03/24/21 03/26/21 Rx Thiamine [Vitamin B-1] 100 mg PO BID-W/MEALS #30 tab 03/24/21 03/26/21 Rx hydrOXYzine pamoate [Vistaril] 50 mg PO BID 03/26/21 03/26/21 History traZODone HCL 100 mg PO HS 03/26/21 03/26/21 History Allergies Allergy/AdvReac Type Severity Reaction Status Date / Time No Known Allergies Allergy Verified 03/26/21 14:08 Physical Exam Vitals: Vital Signs Temp Pulse Pulse Resp BP BP Pulse Ox 03/27/21 08:00 98.0 F 94 18 126/66 95 03/27/21 00:42 97.7 F 94 16 97/54 93 L 03/26/21 19:10 98.0 F 93 16 114/62 93 L 03/26/21 18:39 97.6 F 96 18 110/89 93 L 03/26/21 18:00 96 18 110/89 93 L 03/26/21 15:57 90 18 106/63 93 L 03/26/21 12:55 97.6 F 111 H 18 142/90 98 Intake and Output 03/26/21 03/27/21 03/27/21 22:59 06:59 14:59 Other: Voiding Method Toilet Toilet # Voids 2 Weight 81.647 kg Results CBC & Chem 7: 03/27/21 08:24 03/27/21 08:24 Labs: Abnormal Lab Results - Last 24 Hours (Table) 03/26/21 03/26/21 03/27/21 Range/Units 13:38 13:38 08:24 WBC 19.4 H 25.5 H (3.8-10.6) k/uL Neutrophils # 14.5 H 21.6 H (1.3-7.7) k/uL Monocytes # 1.1 H (0-1.0) k/uL Sodium (137-145) mmol/L Carbon Dioxide 16 L (22-30) mmol/L Glucose (74-99) mg/dL AST 174 H (17-59) U/L ALT 105 H (4-49) U/L Alkaline Phosphatase 152 H (38-126) U/L Creatine Kinase 2702 H* (55-170) U/L Serum Alcohol 295 H* mg/dL 03/27/21 Range/Units 08:24 WBC (3.8-10.6) k/uL Neutrophils # (1.3-7.7) k/uL Monocytes # (0-1.0) k/uL Sodium 134 L (137-145) mmol/L Carbon Dioxide 13 L (22-30) mmol/L Glucose 66 L (74-99) mg/dL AST (17-59) U/L ALT (4-49) U/L Alkaline Phosphatase (38-126) U/L Creatine Kinase 944 H (55-170) U/L Serum Alcohol mg/dL Thrombosis Risk Factor Assmnt - Choose All That Apply Any of the Below Risk Factors Present?: Yes Each Factor Represents 1 point: Age 41-60 years, Obesity (BMI >25) Other Risk Factors: No Other congenital or acquired thrombophilia - If yes, enter type in comment: No Thrombosis Risk Factor Assessment Total Risk Factor Score: 2 Thrombosis Risk Factor Assessment Level: Low Risk
[2021-03-27 15:05] LABS: Appearance,Urine Clear (Clear); Bilirubin,Urine Negative (Negative); Blood,Urine Negative (Negative); Color,Urine Yellow; Glucose,Urine (UA) Negative (Negative); Ketones,Urine 4+ (Negative); Leukocyte Esterase,Urine Negative (Negative); Nitrite,Urine Negative (Negative); PH, Urine 5.5 (5.0-8.0); Protein,Urine Trace (Negative); Specific Gravity,Urine 1.022 (1.001-1.035); Urobilinogen,Urine <2.0 mg/dL (<2.0)
[2021-03-27] MEDS: PANTOPRAZOLE 40 MG TABLET PO SCH (15:46)
[2021-03-27] MEDS: OLANZapine 5 MG TAB PO SCH (20:02)
[2021-03-27] MEDS: traZODone HCL 100 MG TAB PO SCH (20:02)
[2021-03-28] MEDS: SODIUM CHLORIDE 0.9% 1,000 ML IV SCH (01:44)
[2021-03-28] MEDS: NICOTINE 21MG/24HR PATCH TRANSDERM SCH (08:36)
[2021-03-28] MEDS: hydrOXYzine pamoate 25 MG CAP PO SCH (08:36)
[2021-03-28] MEDS: THIAMINE 100 MG TAB PO SCH (08:37)
[2021-03-28] MEDS: PANTOPRAZOLE 40 MG TABLET PO SCH (08:37)
[2021-03-28 08:51] VITALS: BP 133/82; PULSE 74; RESP 19; TEMP 97.5
[2021-03-28] MEDS ORDERED: ENOXAPARIN 40 MG/0.4 ML SYRINGE SQ SCH (09:00)
[2021-03-28 09:34] LABS: HGB 13.6 g/dL (13.0-17.0); MCH 29.6 pg (27.0-32.0); MCHC 33.2 g/dL (32.0-37.0); MCV 89.3 fL (80.0-97.0); Mean Platelet Volume 10.8 fL (9.5-12.2); Platelet Count 225 X 10*3/uL (140-440); RBC 4.59 X 10*6/uL (4.40-5.60); RDW 14.1 % (11.5-14.5)
[2021-03-28] MEDS ORDERED: ALPRAZolam 0.5 MG TAB PO STA (11:05)
[2021-03-28 12:22] LABS: Albumin 3.4 g/dL (3.80-4.90); Albumin/Globulin Ratio 1.48 (1.60-3.17); Anion Gap 10.7 mmol/L (4.00-12.00); BUN/Creat Ratio 21.67 Ratio (12.00-20.00); Calcium 8.2 mg/dL (8.7-10.3); Carbon Dioxide 20.3 mmol/L (21.6-31.8); Globulin 2.3 g/dL (1.6-3.3); Non-African American GFR(CKD) 114.8 (60.0-200.0); Potassium 3.9 mmol/L (3.5-5.5); Total Protein 5.7 g/dL (6.2-8.2)
--- NOTE | 2021-03-29 13:31 | P.DS ---
Providers Date of admission: 03/26/21 17:06 Expected date of discharge: 03/28/21 Attending physician: Bolivar Gilliland Primary care physician: Stated None Hospital Course: Final diagnosis -Alcohol intoxication -Leukocytosis etiology is not clear possibly reactive, approved -Anion gap metabolic acidosis probably secondary to lactic acidosis from dehydration and continued alcohol use, improved -Elevated CK, rhabdomyolysis, improved -Acute alcoholic hepatitis which is expected to improve with cessation of alcohol -Hypertension -Depression -DVT prophylaxis Discharge disposition Patient is being discharged in a stable condition with guarded prognosis to home. Patient will follow-up with primary care provider in the outpatient setting upon discharge. [facility] Total time taken is greater than 35 minutes. Hospital course Patient is a pleasant 51-year-old male was recently discharged from the hospital after he was treated for alcohol withdrawals found to be wandering in intoxicated was brought in for alcohol intoxication. Patient is very pleasant and willing to quit alcohol and patient is willing to go to subacute rehabitation. Since he was recently treated about couple days ago for alcohol withdrawal are do not expect any more alcohol withdrawal but the patient has increased white blood cell count of 25,000. Patient doesn't have any cough denied any dysuria patient was complaining of some abdominal discomfort we'll obtain a chest x-ray urinalysis urine cultures and repeat compress metabolic profile because of his elevated liver enzymes which is again secondary to alcoholic hepatitis and CBC because of leukocytosis which I cannot clearly explain can be reactive. Patient drinks about one fifth of liquor every day. Social work will be consulted 03/28/2021 Patient is seen in follow-up with no acute overnight issues noted. Repeat CBC was done and white blood count trending down at 10 other labs within normal limits and patient is anticipating discharge today [facility] and is taking him there. Instructed to follow-up with primary care provider and establish with one and continue to avoid alcohol intake. Currently no reports of chest pain, shortness of breath, or palpitations. Patient is afebrile. No reports of nausea or vomiting and patient is tolerating diet. Patient will be discharged home today. GENERAL: The patient is alert and oriented x3, not in any acute distress. Well developed, well nourished. HEENT: Pupils are round and equally reacting to light. EOMI. No scleral icterus. No conjunctival pallor. Normocephalic, atraumatic. No pharyngeal erythema. No thyromegaly. CARDIOVASCULAR: S1 and S2 present. No murmurs, rubs, or gallops. PULMONARY: Chest is clear to auscultation, no wheezing or crackles. ABDOMEN: Soft, nontender, nondistended, normoactive bowel sounds. No palpable organomegaly. MUSCULOSKELETAL: No joint swelling or deformity. EXTREMITIES: No cyanosis, clubbing, or pedal edema. NEUROLOGICAL: Gross neurological examination did not reveal any focal deficits. SKIN: No rashes. On exam vital signs are stable. Cardio S1, S2 are muffled. Respiratory system shows diminished breath sounds at the bases with no wheezing or rhonchi noted. Abdomen is soft and obese, and nontender. Nervous system shows diffuse weakness. Please refer to medication reconciliation sheet for a list of medications. Patient Condition at Discharge: Fair Plan - Discharge Summary Discharge Rx Participant: Yes New Discharge Prescriptions: New Pantoprazole [Protonix] 40 mg PO AC-BID 30 Days #60 tablet. Nicotine 21Mg/24Hr Patch [Habitrol] 1 patch TRANSDERM DAILY #30 patch Continue OLANZapine [ZyPREXA] 5 mg PO HS #30 tab Thiamine [Vitamin B-1] 100 mg PO BID-W/MEALS #30 tab traZODone HCL 100 mg PO HS hydrOXYzine pamoate [Vistaril] 50 mg PO BID Discharge Medication List OLANZapine [ZyPREXA] 5 mg PO HS #30 tab 03/24/21 [Rx] Thiamine [Vitamin B-1] 100 mg PO BID-W/MEALS #30 tab 03/24/21 [Rx] hydrOXYzine pamoate [Vistaril] 50 mg PO BID 03/26/21 [History] traZODone HCL 100 mg PO HS 03/26/21 [History] Nicotine 21Mg/24Hr Patch [Habitrol] 1 patch TRANSDERM DAILY #30 patch 03/28/21 [Rx] Pantoprazole [Protonix] 40 mg PO AC-BID 30 Days #60 tablet. 03/28/21 [Rx] Follow up Appointment(s)/Referral(s): None,Stated [Primary Care Provider] - 1-2 days Patient Instructions/Handouts: Alcohol Intoxication (DC) Activity/Diet/Wound Care/Special Instructions: Patient is going to alcohol rehab Patient is medically clear and stable for discharge to [facility]. follow up pcp outpatient continue current diet encourage fluids Discharge Disposition: HOME SELF-CARE
== END 2021-03-28 12:02 | disposition home or self-care (01) | DRG 897 ==
LOC: EC 12:53 → 4SSUR 17:06
PROVIDERS: ADMIT Internal Medicine; ATTEND Internal Medicine
DX: F10.229 Alcohol dependence with intoxication, unspecified (principal); E87.2 Acidosis; M62.82 Rhabdomyolysis; F10.231 Alcohol dependence with withdrawal delirium; F17.210 Nicotine dependence, cigarettes, uncomplicated; D72.829 Elevated white blood cell count, unspecified; E86.0 Dehydration; F31.9 Bipolar disorder, unspecified; I10 Essential (primary) hypertension; K70.10 Alcoholic hepatitis without ascites; Y90.8 Blood alcohol level of 240 mg/100 ml or more; I95.9 Hypotension, unspecified; Z79.899 Other long term (current) drug therapy
CPT/HCPCS: 36415; 71045; 80048; 80053; 80320; 81003; 82550; 83690; 83735; 85025; 85027

== ENCOUNTER 2022-05-11 12:00 | Emergency (ER) | payer OTHER ==
[2022-05-11 12:08] VITALS: BP 113/56; PULSE 91; RESP 18; TEMP 98
--- NOTE | 2022-05-11 13:06 | XR ---
Left leg and left ankle HISTORY: Trauma and pain 2 views the left leg, 3 views the left ankle Proximal diaphyseal left fibular fracture shows only minimal displacement. There is no evident disloc ation. Soft tissue swelling is noted distally. There is an enthesophyte present at the insertion of t he Achilles tendon. IMPRESSION: Proximal left fibular fracture.
[2022-05-11] MEDS ORDERED: KETOROLAC 15 MG/ML 1 ML VIAL IM STA (13:09)
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
[2022-05-11] MEDS ORDERED: IBUPROFEN 600 MG STARTER PACK 4 TAB BTL PO STA (13:28)
== END 2022-05-11 14:08 | disposition home or self-care (01) ==
LOC: EC 12:00
DX: S89.202A Unspecified physeal fracture of upper end of left fibula, initial encounter for closed fracture (principal); F17.200 Nicotine dependence, unspecified, uncomplicated; V18.0XXA Pedal cycle driver injured in noncollision transport accident in nontraffic accident, initial encounter; Y92.410 Unspecified street and highway as the place of occurrence of the external cause
CPT/HCPCS: 73590; 73610; 96372; 99284; L1830 ×2; J1885